=== PATIENT | male | born 2000 | race Two or more races ===

== ENCOUNTER 2020-11-04 22:00 | Emergency (ER) | payer OTHER ==
[~2020-11-04] VITALS: Ht 172.7 cm; Wt 59.4 kg
== END 2020-11-04 22:58 | disposition home or self-care (01) ==
LOC: ER 22:00
DX: S80.872A Other superficial bite, left lower leg, initial encounter (principal); W54.0XXA Bitten by dog, initial encounter; Y93.89 Activity, other specified; Y92.89 Other specified places as the place of occurrence of the external cause; Y99.8 Other external cause status